=== PATIENT | male | born 1975 | race Caucasian/White ===

== ENCOUNTER → 2023-10-26 08:57 | Outpatient (REF) | payer OTHER, SELFPAY | LOC: WDC 08:57 | PROVIDERS: ATTENDING PHYSICIAN Family Medicine; REFERRING PHYSICIAN Physician Assistant Medical | DX: R22.31 Localized swelling, mass and lump, right upper limb (principal); N63.31 Unspecified lump in axillary tail of the right breast | CPT/HCPCS: 76642; 77062; 77066 ==